=== PATIENT | female | born 1955 | race African-American/Black ===

== ENCOUNTER 2017-01-18 18:20 | Emergency (ER) | payer MEDICAID, OTHER ==
[~2017-01-18] VITALS: Ht 157.5 cm; Wt 71.0 kg
[~2017-01-18 18:20] MED LIST: ALBU17AE26; BECL8.7A5; BENA20TA77; GUAI600T PO; HYDR1TAB4 PO; LEVO125T PO; LEVO75TA; SIMV40TA5; THEO200T37; TIOT18CA3 IH
[2017-01-18 19:05] VITALS: BP 169/87
== END 2017-01-19 00:34 | disposition left against medical advice (07) ==
LOC: ER 01-19 00:09
DX: J45.909 Unspecified asthma, uncomplicated (principal); Z53.21 Procedure and treatment not carried out due to patient leaving prior to being seen by health care provider

== ENCOUNTER 2017-10-09 20:32 | Emergency (ER) | payer MEDICAID ==
[~2017-10-09] VITALS: Ht 162.6 cm; Wt 90.0 kg
[~2017-10-09 20:32] MED LIST changes: -GUAI600T PO; +GUAI600T26 PO; +THEO200T17; -THEO200T37
[2017-10-09] MEDS ORDERED: METHYLPREDNISOLONE SOD SUCC 125 MG/2 ML VIAL IV STA (21:00)
[2017-10-09] MEDS ORDERED: ALBUTEROL (0.083%) 2.5MG/3ML NEB HHN STA (21:00)
[2017-10-09] MEDS ORDERED: IPRATROPIUM BROMIDE (0.02%) 0.5MG/2.5ML NEB HHN STA (21:00)
[2017-10-09 22:06] LABS: BASOPHILS % 1.2 % (0.0-2.0); HEMATOCRIT. 41.8 % (36.0-48.0); HEMOGLOBIN. 13.8 g/dL (12.0-16.0); LYMPHOCYTES % 34.8 % (20.0-50.0); MEAN CORPUSCULAR HEMOGLOBIN 30.6 pg (28.0-32.0); MEAN CORPUSCULAR VOLUME 92.9 fL (81.0-99.0); MEAN PLATELET VOLUME 8.9 fl (7.4-10.4); MONOCYTES % 8.9 % (2.0-8.0); NEUTROPHILS % 51.1 % (40.0-76.0); PLATELET 351 x1000/uL (130-400); RED CELL DISTRIBUTION WIDTH 13.1 % (11.6-14.6)
[2017-10-09 22:09] LABS: PROTHROMBIN TIME 10.5 sec (9.4-11.6)
[2017-10-09 22:12] LABS: CARBON DIOXIDE 26 mEq/L (21-32); CHLORIDE 102 mEq/L (98-107)
[2017-10-09 22:19] LABS: TROPONIN I < 0.02 ng/mL (0.00-0.04)
[2017-10-10] MEDS ORDERED: ALBUTEROL (0.083%) 2.5MG/3ML NEB HHN ONE (00:15)
[2017-10-10 01:12] VITALS: BP 147/75
== END 2017-10-10 01:12 | disposition home or self-care (01) ==
LOC: ER 20:41
DX: J44.1 Chronic obstructive pulmonary disease with (acute) exacerbation (principal); I10 Essential (primary) hypertension
CPT/HCPCS: 36415; 71045; 80053; 83880; 84484; 85025; 85610; 93005; 94640; 96374; 99285; J2930; J7611; Z7610

== ENCOUNTER 2018-10-03 00:17 | Emergency (ER) | payer MEDICAID ==
[~2018-10-03] VITALS: Ht 165.1 cm; Wt 77.2 kg
[~2018-10-03 00:17] MED LIST changes: -LEVO125T PO
[2018-10-03] MEDS ORDERED: IPRATROPIUM BROMIDE (0.02%) 0.5MG/2.5ML NEB HHN STA (00:27)
[2018-10-03] MEDS ORDERED: METHYLPREDNISOLONE SOD SUCC 125 MG/2 ML VIAL IV STA (00:27)
[2018-10-03] MEDS ORDERED: ALBUTEROL (0.083%) 2.5MG/3ML NEB HHN STA (00:27)
[2018-10-03] MEDS ORDERED: MAGNESIUM 2 G PREMIX 50 ML IV STA (00:27)
[2018-10-03] MEDS ORDERED: ASPIRIN 81MG TABLET PO ONE (00:30)
[2018-10-03 00:59] LABS: BG BASE EXCESS 1.9 mmol/L (-2.0-2.0); BG CARBOXYHEMOGLOBIN 0.8 % (0.5-1.5); BG DEOXYHEMOGLOBIN 14.3 % (0.0-5.0); BG FRACTION INSPIRED OXYGEN 100; BG HCO3 ACT 28.4 mmol/L (22.0-26.0); BG METHEMOGLOBIN 0.5 % (0.0-1.5); BG OXYGEN SATURATION 85.5 % (92.0-98.5); BG OXYHEMOGLOBIN 84.4 % (94.0-97.0); BG PCO2 51.7 mmHg (35.0-45.0); BG PH 7.357 (7.350-7.450); BG PO2 52.4 mmHg (75.0-100.0); BG SAMPLE SITE LEFT RADIAL; BG TOTAL HEMOGLOBIN 14.1 g/dL (12.0-18.0); BG VENT MODE MASK - BIPAP
[2018-10-03 01:28] LABS: EOSINOPHILS % 4.5 % (0.0-5.0); HEMATOCRIT. 45.9 % (36.0-48.0); LYMPHOCYTES % 47.3 % (20.0-50.0); MEAN CORPUSCULAR HEMOGLOBIN 29.5 pg (28.0-32.0); MEAN PLATELET VOLUME 9.7 fl (7.4-10.4); MONOCYTES % 8.5 % (2.0-8.0); NEUTROPHILS % 38.7 % (40.0-76.0); PLATELET 280 x1000/uL (130-400); RED CELL DISTRIBUTION WIDTH 13.8 % (11.6-14.6)
[2018-10-03 01:39] LABS: PARTIAL THROMBOPLASTIN TIME 28.2 sec (23.4-31.0)
[2018-10-03 01:46] LABS: CHLORIDE 104 mEq/L (98-107)
[2018-10-03] MEDS ORDERED: KCL 10MEQ/50ML PREMIX 50 ML IV ONE (03:15)
[2018-10-03 03:33] LABS: BG BASE EXCESS 0.5 mmol/L (-2.0-2.0); BG BILEVEL POS AIRWAY PRESSURE 15/5; BG CARBOXYHEMOGLOBIN 0.4 % (0.5-1.5); BG DEOXYHEMOGLOBIN 0.2 % (0.0-5.0); BG FRACTION INSPIRED OXYGEN 100; BG HCO3 ACT 25.6 mmol/L (22.0-26.0); BG METHEMOGLOBIN 0.6 % (0.0-1.5); BG OXYGEN SATURATION 99.8 % (92.0-98.5); BG OXYHEMOGLOBIN 98.8 % (94.0-97.0); BG PCO2 42.9 mmHg (35.0-45.0); BG PH 7.393 (7.350-7.450); BG PO2 467.3 mmHg (75.0-100.0); BG SAMPLE SITE RIGHT RADIAL; BG TOTAL HEMOGLOBIN 13.6 g/dL (12.0-18.0); BG VENT MODE MASK - BIPAP; BG VENT RATE 14 set
[2018-10-03] MEDS ORDERED: LEVOFLOXACIN 500MG PREMIX 100 ML IV SCH (06:45)
[2018-10-03] MEDS ORDERED: ENOXAPARIN 40MG/0.4ML SYR SUBCUT SCH (06:45)
[2018-10-03] MEDS ORDERED: ONDANSETRON HCL 4MG/2ML INJ IV PRN (06:45)
[2018-10-03] MEDS ORDERED: CLONIDINE 0.1MG TABLET PO PRN (06:45)
[2018-10-03] MEDS ORDERED: DIPHENHYDRAMINE 50MG/ML VIAL IV PRN (06:45)
[2018-10-03] MEDS ORDERED: NA PHOS,M-B/NA PHOS,DI-BA ENEMA 118ML PR PRN (06:45)
[2018-10-03] MEDS ORDERED: MORPHINE SULFATE 4 MG/ML CPJ (NOT FOR IM USE) IV PRN (06:45)
[2018-10-03] MEDS ORDERED: GUAIFENESIN 200MG/10ML SUGAR FREE UDC PO PRN (06:45)
[2018-10-03] MEDS ORDERED: LORAZEPAM 2MG/ML CPJ IV PRN (06:45)
[2018-10-03] MEDS ORDERED: MAGNESIUM/ALUMINUM HYDROXIDE/SIMETHICONE 30ML UDC PO PRN (06:45)
[2018-10-03] MEDS ORDERED: ACETAMINOPHEN 325MG TABLET PO PRN (06:45)
[2018-10-03] MEDS ORDERED: IPRATROPIUM/ALBUTEROL 0.5-3(2.5)MG/3ML NEB INH PRN (06:45)
[2018-10-03] MEDS ORDERED: DOCUSATE SODIUM 100MG CAPSULE PO PRN (06:45)
[2018-10-03] MEDS ORDERED: HYDROCODONE/ACETAMINOPHEN 5/325MG TABLET PO PRN (06:45)
[2018-10-03] MEDS ORDERED: METHYLPREDNISOLONE SOD SUCC 125 MG/2 ML VIAL IV SCH (07:00)
[2018-10-03 07:35] VITALS: BP 150/71
[2018-10-03] MEDS ORDERED: ASPIRIN 81MG EC TABLET PO SCH (09:00)
== END 2018-10-03 08:00 | disposition left against medical advice (07) ==
LOC: ER 00:17 → EDBEDREQ 03:19 → EDBEDREQTM 03:19 → ENRESERV 07:56 → CANRESERV 07:56 → ER 08:00 → CANBEDREQ 10:44
DX: J44.9 Chronic obstructive pulmonary disease, unspecified (principal); E87.6 Hypokalemia; I10 Essential (primary) hypertension; E05.90 Thyrotoxicosis, unspecified without thyrotoxic crisis or storm; Z79.899 Other long term (current) drug therapy
CPT/HCPCS: 36415; 36600; 71045; 80053; 82375; 82805; 83880; 84484; 85025; 85610; 85730; 93005; 94644; 94660; 99285; J2930; J3475; J3480; J7611; Z7610; 94640

== ENCOUNTER 2018-12-12 08:55 | Inpatient (IN) | payer MEDICAID ==
[~2018-12-12] VITALS: Ht 160 cm; Wt 82.3 kg
[2018-12-12] VITALS (8 sets, daily range): BP systolic 130–169; BP diastolic 54–112
[2018-12-12] MEDS ORDERED: METHYLPREDNISOLONE SOD SUCC 125 MG/2 ML VIAL IV STA (09:03)
[2018-12-12] MEDS ORDERED: ALBUTEROL (0.083%) 2.5MG/3ML NEB HHN STA (09:03)
[2018-12-12] MEDS ORDERED: IPRATROPIUM BROMIDE (0.02%) 0.5MG/2.5ML NEB HHN STA (09:03)
[2018-12-12] MEDS ORDERED: SODIUM CHLORIDE 0.9% 1,000 ML IV ONE (09:03)
[2018-12-12] MEDS ORDERED: MAGNESIUM 2 G PREMIX 50 ML IV ONE (09:15)
[2018-12-12 09:26] LABS: EOSINOPHILS % 5.4 % (0.0-5.0); HEMATOCRIT. 45.7 % (36.0-48.0); HEMOGLOBIN. 14.9 g/dL (12.0-16.0); LYMPHOCYTES % 41.7 % (20.0-50.0); MEAN CORPUSCULAR HEMOGLOBIN 29.2 pg (28.0-32.0); MEAN CORPUSCULAR VOLUME 89.6 fL (81.0-99.0); MEAN PLATELET VOLUME 8.9 fl (7.4-10.4); MONOCYTES % 4.9 % (2.0-8.0); PLATELET 276 x1000/uL (130-400); RED BLOOD CELL COUNT 5.11 mill/uL (4.2-5.4); RED CELL DISTRIBUTION WIDTH 13.7 % (11.6-14.6)
[2018-12-12 09:31] LABS: CHLORIDE 105 mEq/L (98-107)
[2018-12-12 10:48] LABS: BG BILEVEL POS AIRWAY PRESSURE 15/5; BG CARBOXYHEMOGLOBIN 0.5 % (0.5-1.5); BG DEOXYHEMOGLOBIN 0.3 % (0.0-5.0); BG HCO3 ACT 24.9 mmol/L (22.0-26.0); BG METHEMOGLOBIN 0.5 % (0.0-1.5); BG OXYGEN SATURATION 99.7 % (92.0-98.5); BG OXYHEMOGLOBIN 98.7 % (94.0-97.0); BG PCO2 45.7 mmHg (35.0-45.0); BG PH 7.354 (7.350-7.450); BG PO2 364.1 mmHg (75.0-100.0); BG SAMPLE SITE RIGHT RADIAL; BG TOTAL HEMOGLOBIN 14.9 g/dL (12.0-18.0); BG VENT MODE MASK - BIPAP; BG VENT RATE 16 set
[2018-12-12] MEDS ORDERED: IPRATROPIUM/ALBUTEROL 0.5-3(2.5)MG/3ML NEB ONE (16:04)
[2018-12-12] MEDS ORDERED: LORAZEPAM 0.5MG TABLET PO PRN (17:30)
[2018-12-12] MEDS ORDERED: ACETAMINOPHEN 325MG TABLET PO PRN (17:30)
[2018-12-12] MEDS ORDERED: ONDANSETRON HCL 4MG/2ML INJ IV PRN (17:30)
[2018-12-12] MEDS ORDERED: CLONIDINE 0.1MG TABLET PO PRN (17:30)
[2018-12-12] MEDS ORDERED: IPRATROPIUM/ALBUTEROL 0.5-3(2.5)MG/3ML NEB INH PRN (17:30)
[2018-12-12] MEDS ORDERED: POTASSIUM CHLORIDE 20MEQ TABLET SR PO SCH (17:30)
[2018-12-12] MEDS ORDERED: METHYLPREDNISOLONE SOD SUCC 40 MG/ML VIAL IV SCH (17:30)
[2018-12-12] MEDS ORDERED: AZITHROMYCIN 500 MG in DEXT 5% WATER 250 ML IV SCH (18:30)
[2018-12-12] MEDS ORDERED: ALBUTEROL (0.5%) 2.5MG/0.5ML NEB HHN PRN (20:15)
[2018-12-12] MEDS ORDERED: THEOPHYLLINE ANHYDROUS 100MG TABLET SR 12HR PO SCH (21:00)
[2018-12-12] MEDS ORDERED: DEXTROSE 50% WATER 50ML SYRINGE IV PRN (21:00)
[2018-12-12] MEDS: BLOOD SUGAR DIAGNOSTIC STRIP TEST SCH (21:25)
[2018-12-12] MEDS: INSULIN LISPRO 100 UNITS/ML SUBCUT SCH (21:43)
[2018-12-12] MEDS: HYDROCODONE/ACETAMINOPHEN 5/325MG TABLET PO PRN (21:47)
[2018-12-12] MEDS ORDERED: ZOLPIDEM TARTRATE 5MG TABLET PO PRN (22:00)
[2018-12-12] MEDS: THEOPHYLLINE ANHYDROUS 80 MG/15 ML 120ML PO SCH (22:58)
[2018-12-13] VITALS (8 sets, daily range): BP systolic 93–151; BP diastolic 38–78
[2018-12-13] MEDS: METHYLPREDNISOLONE SOD SUCC 40 MG/ML VIAL IV SCH ×3 (00:22→11:55)
[2018-12-13] MEDS: ALBUTEROL (0.083%) 2.5MG/3ML NEB HHN SCH ×4 (00:35→13:20)
[2018-12-13] MEDS: THEOPHYLLINE ANHYDROUS 80 MG/15 ML 120ML PO SCH (06:17)
[2018-12-13] MEDS: BLOOD SUGAR DIAGNOSTIC STRIP TEST SCH ×2 (06:22→11:49)
[2018-12-13 06:57] LABS: BASOPHILS % 0.3 % (0.0-2.0); HEMATOCRIT. 41.3 % (36.0-48.0); HEMOGLOBIN. 13.8 g/dL (12.0-16.0); LYMPHOCYTES % 9.7 % (20.0-50.0); MEAN CORPUSCULAR HEMOGLOBIN 29.9 pg (28.0-32.0); MEAN CORPUSCULAR VOLUME 89.2 fL (81.0-99.0); MEAN PLATELET VOLUME 9.2 fl (7.4-10.4); MONOCYTES % 2.2 % (2.0-8.0); NEUTROPHILS % 87.8 % (40.0-76.0); PLATELET 272 x1000/uL (130-400); RED BLOOD CELL COUNT 4.63 mill/uL (4.2-5.4); RED CELL DISTRIBUTION WIDTH 13.4 % (11.6-14.6)
[2018-12-13] MEDS: INSULIN LISPRO 100 UNITS/ML SUBCUT SCH ×2 (07:08→11:49)
[2018-12-13 07:27] LABS: CHLORIDE 105 mEq/L (98-107)
[2018-12-13 07:39] LABS: PHOSPHORUS 3.3 mg/dL (2.5-4.9)
[2018-12-13 09:18] LABS: BG BASE EXCESS -0.6 mmol/L (-2.0-2.0); BG CARBOXYHEMOGLOBIN 0.7 % (0.5-1.5); BG FRACTION INSPIRED OXYGEN 28; BG HCO3 ACT 23.2 mmol/L (22.0-26.0); BG METHEMOGLOBIN 0.3 % (0.0-1.5); BG PCO2 35.9 mmHg (35.0-45.0); BG PH 7.429 (7.350-7.450); BG PO2 88.1 mmHg (75.0-100.0); BG SAMPLE SITE RIGHT RADIAL; BG TOTAL HEMOGLOBIN 14.7 g/dL (12.0-18.0); BG VENT MODE NASAL CANNULA
[2018-12-13] MEDS: HYDROCODONE/ACETAMINOPHEN 5/325MG TABLET PO PRN (09:39)
[2018-12-13] MEDS ORDERED: BUDESONIDE 0.5MG/2ML NEB HHN SCH (13:00)
[2018-12-13] MEDS ORDERED: LIDOCAINE HCL/PF 1% 2ML VIAL ONE (16:36)
[2018-12-14] MEDS ORDERED: PREDNISONE 20MG TABLET PO SCH (09:00)
== END 2018-12-13 14:13 | disposition home or self-care (01) | DRG 133 ==
LOC: ER 09:03 → 3WST 12:54 → EDBEDREQ 12:56 → EDBEDREQSVC 12:56 → ENRESERV 15:07 → 3WST 16:32
PROVIDERS: ADMIT Internal Medicine; ATTEND Internal Medicine
PROC: 5A09357 Assistance with Respiratory Ventilation, Less than 24 Consecutive Hours, Continuous Positive Airway Pressure (ICD-10-PCS; principal; 2018-12-12)
DX: J96.00 Acute respiratory failure, unspecified whether with hypoxia or hypercapnia (principal); J45.41 Moderate persistent asthma with (acute) exacerbation; D72.829 Elevated white blood cell count, unspecified; E87.6 Hypokalemia; M16.11 Unilateral primary osteoarthritis, right hip; R73.9 Hyperglycemia, unspecified; I10 Essential (primary) hypertension; G89.29 Other chronic pain; E78.5 Hyperlipidemia, unspecified; E03.9 Hypothyroidism, unspecified; T38.0X5A Adverse effect of glucocorticoids and synthetic analogues, initial encounter; Y92.89 Other specified places as the place of occurrence of the external cause; Z96.653 Presence of artificial knee joint, bilateral; Z87.01 Personal history of pneumonia (recurrent); Z79.899 Other long term (current) drug therapy; J45.901 Unspecified asthma with (acute) exacerbation
CPT/HCPCS: 36415; 36600; 71045; 80048; 82375; 82805; 82962; 83036; 83735; 83880; 84100; 84484; 85379; 87804; 93005; 94640; 94660; 96374; 96375; 99285; J0456; J1815; J2920; J2930; J3475; J3490; J7030; J7050; J7060; J7611; J7620; J7626

== ENCOUNTER 2019-01-01 20:42 | Emergency (ER) | payer MEDICAID ==
[~2019-01-01] VITALS: Ht 157.5 cm; Wt 77.0 kg
[2019-01-01] MEDS ORDERED: IPRATROPIUM BROMIDE (0.02%) 0.5MG/2.5ML NEB HHN STA (23:16)
[2019-01-01] MEDS ORDERED: ALBUTEROL (0.083%) 2.5MG/3ML NEB HHN STA (23:16)
[2019-01-01] MEDS ORDERED: PREDNISONE 20MG TABLET PO STA (23:16)
[2019-01-02 00:25] LABS: EOSINOPHILS % 4.7 % (0.0-5.0); HEMATOCRIT. 37.8 % (36.0-48.0); HEMOGLOBIN. 12.6 g/dL (12.0-16.0); LYMPHOCYTES % 38.5 % (20.0-50.0); MEAN CORPUSCULAR HEMOGLOBIN 30.1 pg (28.0-32.0); MEAN CORPUSCULAR VOLUME 89.9 fL (81.0-99.0); MEAN PLATELET VOLUME 9.1 fl (7.4-10.4); MONOCYTES % 6.8 % (2.0-8.0); PLATELET 192 x1000/uL (130-400); RED CELL DISTRIBUTION WIDTH 13.8 % (11.6-14.6)
[2019-01-02 00:27] LABS: CHLORIDE 106 mEq/L (98-107)
[2019-01-02] MEDS ORDERED: ALBUTEROL (0.083%) 2.5MG/3ML NEB HHN ONE (01:15)
[2019-01-02] MEDS ORDERED: ACETAMINOPHEN 325MG TABLET PO PRN (01:15)
[2019-01-02] MEDS ORDERED: LEVOFLOXACIN 750MG PREMIX 150 ML IV ONE (01:45)
[2019-01-02] MEDS ORDERED: ASPIRIN 81MG TABLET PO ONE (02:00)
[2019-01-02] MEDS ORDERED: POTASSIUM CHLORIDE 20MEQ TABLET SR PO ONE (02:00)
[2019-01-02 02:52] LABS: CLARITY URINE CLEAR (CLEAR); COLOR URINE YELLOW (YELLOW); KETONES URINE NEGATIVE (NEGATIVE); LEUKOCYTE ESTERASE URINE NEGATIVE (NEGATIVE); NITRITE URINE NEGATIVE (NEGATIVE); OCCULT BLOOD URINE NEGATIVE (NEGATIVE); PROTEIN URINE NEGATIVE (NEGATIVE)
[2019-01-02 05:02] VITALS: BP 168/75
== END 2019-01-02 05:06 | disposition left against medical advice (07) ==
LOC: ER 20:55 → EDBEDREQ 01-02 01:17 → EDBEDREQTM 01-02 01:17 → ENRESERV 01-02 02:32 → CANRESERV 01-02 02:32 → ER 01-02 05:06 → CANBEDREQ 01-02 06:26
DX: J45.901 Unspecified asthma with (acute) exacerbation (principal); R94.31 Abnormal electrocardiogram [ECG] [EKG]; I10 Essential (primary) hypertension; E05.90 Thyrotoxicosis, unspecified without thyrotoxic crisis or storm; Z79.899 Other long term (current) drug therapy
CPT/HCPCS: 36415; 71045; 80053; 81003; 83880; 84484; 85025; 87040; 87086; 93005; 94640; 96365; 99284; J1956; J7512; J7611

== ENCOUNTER 2019-04-01 05:49 | Emergency (ER) | payer MEDICAID ==
[~2019-04-01] VITALS: Ht 167.6 cm; Wt 91.0 kg
[2019-04-01] MEDS ORDERED: KETOROLAC 60MG/2ML VIAL IM ONE (06:45)
[2019-04-01 08:15] VITALS: BP 137/72
== END 2019-04-01 08:20 | disposition home or self-care (01) ==
LOC: ER 05:49
DX: M54.5 Low back pain (principal); J45.909 Unspecified asthma, uncomplicated; I10 Essential (primary) hypertension; Z79.899 Other long term (current) drug therapy
CPT/HCPCS: 72131; 96372; 99284; J1885

== ENCOUNTER 2019-04-19 03:05 | Inpatient (IN) | payer MEDICAID ==
[2019-04-19] VITALS (8 sets, daily range): BP systolic 92–160; BP diastolic 48–79
[~2019-04-19] VITALS: Ht 162.6 cm; Wt 79.2 kg
[2019-04-19] MEDS ORDERED: METHYLPREDNISOLONE SOD SUCC 125 MG/2 ML VIAL IV STA (03:32)
[2019-04-19] MEDS ORDERED: SODIUM CHLORIDE 0.9% 1,000 ML IV ONE (03:32)
[2019-04-19] MEDS ORDERED: IPRATROPIUM BROMIDE (0.02%) 0.5MG/2.5ML NEB HHN STA (03:32)
[2019-04-19] MEDS ORDERED: ONDANSETRON HCL 4MG/2ML INJ IV STA (03:32)
[2019-04-19] MEDS ORDERED: MAGNESIUM 2 G PREMIX 50 ML IV ONE (03:45)
[2019-04-19] MEDS: ALBUTEROL (0.083%) 2.5MG/3ML NEB HHN SCH ×3 (04:00→05:00)
[2019-04-19 04:16] LABS: BASOPHILS % 1.1 % (0.0-2.0); EOSINOPHILS % 6.4 % (0.0-5.0); MEAN CORPUSCULAR HEMOGLOBIN 30.5 pg (28.0-32.0); MEAN CORPUSCULAR VOLUME 91.3 fL (81.0-99.0); MEAN PLATELET VOLUME 9.1 fl (7.4-10.4); MONOCYTES % 8.8 % (2.0-8.0); NEUTROPHILS % 39.7 % (40.0-76.0); PLATELET 268 x1000/uL (130-400); RED BLOOD CELL COUNT 4.27 mill/uL (4.2-5.4); RED CELL DISTRIBUTION WIDTH 13.1 % (11.6-14.6)
[2019-04-19 04:18] LABS: CHLORIDE 109 mEq/L (98-107)
[2019-04-19] MEDS ORDERED: NA PHOS,M-B/NA PHOS,DI-BA ENEMA 118ML PR PRN (07:00)
[2019-04-19] MEDS ORDERED: DIPHENHYDRAMINE 50MG/ML VIAL IV PRN (07:00)
[2019-04-19] MEDS ORDERED: ACETAMINOPHEN 325MG TABLET PO PRN (07:00)
[2019-04-19] MEDS ORDERED: MORPHINE SULFATE 2 MG/ML CPJ (NOT FOR IM USE) IV PRN (07:00)
[2019-04-19] MEDS ORDERED: ONDANSETRON HCL 4MG/2ML INJ IV PRN (07:00)
[2019-04-19] MEDS ORDERED: POTASSIUM CHLORIDE 20MEQ TABLET SR PO SCH (07:00)
[2019-04-19] MEDS ORDERED: IPRATROPIUM/ALBUTEROL 0.5-3(2.5)MG/3ML NEB INH PRN (07:00)
[2019-04-19] MEDS ORDERED: CLONIDINE 0.1MG TABLET PO PRN (07:00)
[2019-04-19] MEDS ORDERED: GUAIFENESIN 200MG/10ML SUGAR FREE UDC PO PRN (07:00)
[2019-04-19] MEDS ORDERED: MAGNESIUM/ALUMINUM HYDROXIDE/SIMETHICONE 30ML UDC PO PRN (07:00)
[2019-04-19] MEDS ORDERED: HYDRALAZINE 20MG/ML VIAL IV PRN (07:00)
[2019-04-19] MEDS ORDERED: LORAZEPAM 2MG/ML CPJ IV PRN (07:00)
[2019-04-19] MEDS ORDERED: DOCUSATE SODIUM 100MG CAPSULE PO PRN (07:00)
[2019-04-19 07:52] LABS: BG BASE EXCESS -2.1 mmol/L (-2.0-2.0); BG BILEVEL POS AIRWAY PRESSURE 18/5; BG CARBOXYHEMOGLOBIN 0.3 % (0.5-1.5); BG DEOXYHEMOGLOBIN 0.9 % (0.0-5.0); BG FRACTION INSPIRED OXYGEN 40; BG HCO3 ACT 23.4 mmol/L (22.0-26.0); BG METHEMOGLOBIN 0.2 % (0.0-1.5); BG OXYGEN SATURATION 99.1 % (92.0-98.5); BG OXYHEMOGLOBIN 98.6 % (94.0-97.0); BG PCO2 42.8 mmHg (35.0-45.0); BG PH 7.355 (7.350-7.450); BG PO2 181.1 mmHg (75.0-100.0); BG SAMPLE SITE RIGHT RADIAL; BG TOTAL HEMOGLOBIN 12.5 g/dL (12.0-18.0); BG VENT MODE MASK - BIPAP; BG VENT RATE 14 set
[2019-04-19] MEDS: ENOXAPARIN 40MG/0.4ML SYR SUBCUT SCH (09:58)
[2019-04-19] MEDS ORDERED: ASPIRIN 81MG EC TABLET PO SCH (10:00)
[2019-04-19] MEDS: HYDROCODONE/ACETAMINOPHEN 10/325MG TABLET PO PRN (10:31)
[2019-04-19 12:52] LABS: T4 FREE 0.96 ng/dL (0.76-1.46)
[2019-04-19] MEDS: SODIUM CHLORIDE 0.9% INJ 3ML FLUSH IVF SCH ×2 (14:00→21:42)
[2019-04-19] MEDS ORDERED: IPRATROPIUM/ALBUTEROL 0.5-3(2.5)MG/3ML NEB HHN PRN (14:45)
[2019-04-19 16:15] LABS: CREATINE KINASE 93 IU/L (26-192)
[2019-04-19 16:16] LABS: CREATINE KINASE MB FRACTION 4.3 ng/mL (0.5-3.6)
[2019-04-19 16:51] LABS: CLARITY URINE CLEAR (CLEAR); COLOR URINE YELLOW (YELLOW); KETONES URINE TRACE (NEGATIVE); LEUKOCYTE ESTERASE URINE NEGATIVE (NEGATIVE); NITRITE URINE NEGATIVE (NEGATIVE); OCCULT BLOOD URINE NEGATIVE (NEGATIVE); PROTEIN URINE NEGATIVE (NEGATIVE); SPECIFIC GRAVITY URINE 1.025 (1.005-1.030)
[2019-04-19] MEDS ORDERED: MONTELUKAST SODIUM 10MG TABLET PO SCH (17:00)
[2019-04-19] MEDS: MECLIZINE 25MG TABLET PO PRN (18:09)
[2019-04-19] MEDS: PREDNISONE 20MG TABLET PO SCH (18:09)
[2019-04-19 18:40] LABS: T4 FREE 1.04 ng/dL (0.76-1.46)
[2019-04-19] MEDS: IPRATROPIUM/ALBUTEROL 0.5-3(2.5)MG/3ML NEB HHN SCH (20:33)
[2019-04-19] MEDS: FLUTICASONE PROPIONATE 50MCG/SPRAY BOTTLE BOTHNSTRLS SCH (21:37)
[2019-04-20] VITALS (8 sets, daily range): BP systolic 127–177; BP diastolic 48–81
[2019-04-20] MEDS: IPRATROPIUM/ALBUTEROL 0.5-3(2.5)MG/3ML NEB HHN SCH ×3 (01:28→14:10)
[2019-04-20] MEDS: MECLIZINE 25MG TABLET PO PRN (01:34)
[2019-04-20] MEDS: HYDROCODONE/ACETAMINOPHEN 10/325MG TABLET PO PRN (02:47)
[2019-04-20] MEDS: SODIUM CHLORIDE 0.9% INJ 3ML FLUSH IVF SCH (06:30)
[2019-04-20 07:25] LABS: BASOPHILS % 0.3 % (0.0-2.0); HEMOGLOBIN. 12.2 g/dL (12.0-16.0); LYMPHOCYTES % 9.3 % (20.0-50.0); MEAN CORPUSCULAR HEMOGLOBIN 30.4 pg (28.0-32.0); MEAN PLATELET VOLUME 9.7 fl (7.4-10.4); MONOCYTES % 6.3 % (2.0-8.0); NEUTROPHILS % 84.1 % (40.0-76.0); PLATELET 237 x1000/uL (130-400); RED BLOOD CELL COUNT 4.02 mill/uL (4.2-5.4); RED CELL DISTRIBUTION WIDTH 13.2 % (11.6-14.6)
[2019-04-20 07:39] LABS: CHLORIDE 110 mEq/L (98-107)
[2019-04-20 07:58] LABS: CREATINE KINASE 67 IU/L (26-192); HDL CHOLESTEROL 81 mg/dL (40-59); LDL CHOLESTEROL 116 mg/dL (5-100)
[2019-04-20 08:00] LABS: CREATINE KINASE MB FRACTION 3.1 ng/mL (0.5-3.6)
[2019-04-20] MEDS ORDERED: ASPIRIN 81MG TABLET PO SCH (09:00)
[2019-04-20] MEDS: ENOXAPARIN 40MG/0.4ML SYR SUBCUT SCH (09:13)
[2019-04-20] MEDS: PREDNISONE 20MG TABLET PO SCH (09:14)
[2019-04-20] MEDS: FLUTICASONE PROPIONATE 50MCG/SPRAY BOTTLE BOTHNSTRLS SCH (09:15)
[2019-04-20 16:59] LABS: *AMPHETAMINES SCREEN URINE NEGATIVE (NEGATIVE)
[2019-04-20 17:00] LABS: *BARBITURATES SCREEN URINE NEGATIVE (NEGATIVE); *BENZODIAZEPINES SCREEN URINE NEGATIVE (NEGATIVE); *COCAINE SCREEN URINE NEGATIVE (NEGATIVE); METHADONE URINE SCREEN NEGATIVE (NEGATIVE); OPIATES URINE SCREEN PRESUMTIVE POSITIVE (NEGATIVE); PHENCYCLIDINE URINE SCREEN NEGATIVE (NEGATIVE)
[2019-04-20 17:01] LABS: CANNABINOID URINE SCREEN NEGATIVE (NEGATIVE)
== END 2019-04-20 14:45 | disposition home or self-care (01) | DRG 133 ==
LOC: ER 03:05 → 5EST 05:42 → EDBEDREQ 05:52 → EDBEDREQTM 05:52 → EDBEDREQSVC 05:52 → ENRESERV 07:06
PROVIDERS: ADMIT Internal Medicine; ATTEND Internal Medicine
PROC: 5A09357 Assistance with Respiratory Ventilation, Less than 24 Consecutive Hours, Continuous Positive Airway Pressure (ICD-10-PCS; principal; 2019-04-19)
DX: J96.00 Acute respiratory failure, unspecified whether with hypoxia or hypercapnia (principal); E87.2 Acidosis; E05.90 Thyrotoxicosis, unspecified without thyrotoxic crisis or storm; I50.9 Heart failure, unspecified; I11.0 Hypertensive heart disease with heart failure; J45.901 Unspecified asthma with (acute) exacerbation; E03.9 Hypothyroidism, unspecified; E78.5 Hyperlipidemia, unspecified; E87.6 Hypokalemia; F17.210 Nicotine dependence, cigarettes, uncomplicated; M19.90 Unspecified osteoarthritis, unspecified site; Z96.659 Presence of unspecified artificial knee joint; Z60.2 Problems related to living alone; J30.9 Allergic rhinitis, unspecified; Z79.899 Other long term (current) drug therapy
CPT/HCPCS: 36415; 36600; 71045; 80061; 80305; 81003; 82375; 82550; 82553; 82805; 83036; 83605; 83880; 84439; 84443; 84481; 84484; 85379; 93005; 93306; 94640; 94660; 96374; 99285; J1650; J2060; J2270; J2405; J2930; J3475; J7030; J7512; J7611; J7620; J8597

== ENCOUNTER 2019-08-30 19:01 | Emergency (ER) | payer MEDICARE, MEDICAID ==
[~2019-08-30] VITALS: Ht 157.5 cm; Wt 82.0 kg
[2019-08-30 19:14] VITALS: BP 185/82
[2019-09-05] MEDS ORDERED: P20 PO (13:53)
[2019-09-05] MEDS ORDERED: AZIT500T3 MT (13:53)
== END 2019-08-31 | disposition left against medical advice (07) ==
LOC: ER 19:01
DX: Z53.21 Procedure and treatment not carried out due to patient leaving prior to being seen by health care provider (principal)

== ENCOUNTER 2019-09-03 06:39 | Inpatient (IN) | payer MEDICARE, MEDICAID ==
[~2019-09-03] VITALS: Ht 167.6 cm; Wt 84.8 kg
[2019-09-03] VITALS (17 sets, daily range): BP systolic 107–151; BP diastolic 48–110
[2019-09-03] MEDS ORDERED: ALBUTEROL (0.083%) 2.5MG/3ML NEB HHN STA (06:52)
[2019-09-03] MEDS ORDERED: IPRATROPIUM BROMIDE (0.02%) 0.5MG/2.5ML NEB HHN STA (06:52)
[2019-09-03] MEDS ORDERED: METHYLPREDNISOLONE SOD SUCC 125 MG/2 ML VIAL IV STA (06:52)
[2019-09-03] MEDS ORDERED: MAGNESIUM 2 G PREMIX 50 ML IV STA (06:52)
[2019-09-03] MEDS ORDERED: ALBUTEROL (0.083%) 2.5MG/3ML NEB ONE (06:58)
[2019-09-03] MEDS ORDERED: IPRATROPIUM BROMIDE (0.02%) 0.5MG/2.5ML NEB ONE (06:58)
[2019-09-03 07:15] LABS: BASOPHILS % 0.9 % (0.0-2.0); EOSINOPHILS % 4.3 % (0.0-5.0); HEMATOCRIT. 42.5 % (36.0-48.0); HEMOGLOBIN. 14.3 g/dL (12.0-16.0); LYMPHOCYTES % 39.8 % (20.0-50.0); MEAN CORPUSCULAR HEMOGLOBIN 31.1 pg (28.0-32.0); MEAN CORPUSCULAR VOLUME 92.3 fL (81.0-99.0); MEAN PLATELET VOLUME 8.8 fl (7.4-10.4); MONOCYTES % 12.3 % (2.0-8.0); NEUTROPHILS % 42.7 % (40.0-76.0); PLATELET 250 x1000/uL (130-400); RED BLOOD CELL COUNT 4.61 mill/uL (4.2-5.4); RED CELL DISTRIBUTION WIDTH 13.1 % (11.6-14.6)
[2019-09-03 07:22] LABS: CHLORIDE 105 mEq/L (98-107)
[2019-09-03 07:23] LABS: INR 0.9; PROTHROMBIN TIME 9.4 sec (9.6-11.0)
[2019-09-03] MEDS ORDERED: LEVOFLOXACIN 500MG PREMIX 100 ML IV ONE (07:30)
[2019-09-03 08:55] LABS: BG BASE EXCESS -4.5 mmol/L (-2.0-2.0); BG BILEVEL POS AIRWAY PRESSURE 15/5; BG CARBOXYHEMOGLOBIN 0.7 % (0.5-1.5); BG METHEMOGLOBIN 0.4 % (0.0-1.5); BG OXYHEMOGLOBIN 97.9 % (94.0-97.0); BG PCO2 35.3 mmHg (35.0-45.0); BG PH 7.371 (7.350-7.450); BG PO2 150.6 mmHg (75.0-100.0); BG SAMPLE SITE RIGHT RADIAL; BG VENT MODE MASK - BIPAP; BG VENT RATE 16 set
[2019-09-03 12:03] LABS: CLARITY URINE CLEAR (CLEAR); COLOR URINE YELLOW (YELLOW); KETONES URINE NEGATIVE (NEGATIVE); LEUKOCYTE ESTERASE URINE TRACE (NEGATIVE); NITRITE URINE NEGATIVE (NEGATIVE); OCCULT BLOOD URINE NEGATIVE (NEGATIVE); PROTEIN URINE NEGATIVE (NEGATIVE); SPECIFIC GRAVITY URINE 1.024 (1.005-1.030); UROBILINOGEN URINE 0.2 E.U./dL (0.2-1.0)
[2019-09-03] MEDS ORDERED: IPRATROPIUM/ALBUTEROL 0.5-3(2.5)MG/3ML NEB HHN PRN (12:15)
[2019-09-03] MEDS ORDERED: TERBUTALINE SULFATE 1MG/ML VIAL SUBCUT NR (12:15)
[2019-09-03] MEDS ORDERED: METHYLPREDNISOLONE SOD SUCC 40 MG/ML VIAL IV SCH (12:15)
[2019-09-03] MEDS ORDERED: BENZONATATE 100MG CAPSULE PO PRN (12:15)
[2019-09-03 12:26] LABS: OPIATES URINE SCREEN PRESUMTIVE POSITIVE (NEGATIVE)
[2019-09-03 12:27] LABS: *AMPHETAMINES SCREEN URINE NEGATIVE (NEGATIVE); *BARBITURATES SCREEN URINE NEGATIVE (NEGATIVE); *BENZODIAZEPINES SCREEN URINE NEGATIVE (NEGATIVE); *COCAINE SCREEN URINE NEGATIVE (NEGATIVE); CANNABINOID URINE SCREEN NEGATIVE (NEGATIVE); PHENCYCLIDINE URINE SCREEN NEGATIVE (NEGATIVE)
[2019-09-03 12:28] LABS: METHADONE URINE SCREEN NEGATIVE (NEGATIVE)
[2019-09-03] MEDS ORDERED: LORAZEPAM 2MG/ML CPJ IV PRN (12:30)
[2019-09-03] MEDS: AZITHROMYCIN 500 MG TABLET PO SCH (13:06)
[2019-09-03] MEDS ORDERED: DOCUSATE SODIUM 100MG CAPSULE PO PRN (13:15)
[2019-09-03] MEDS ORDERED: CLONIDINE 0.1MG TABLET PO PRN (13:15)
[2019-09-03] MEDS ORDERED: GUAIFENESIN 200MG/10ML SUGAR FREE UDC PO PRN (13:15)
[2019-09-03] MEDS ORDERED: MAGNESIUM/ALUMINUM HYDROXIDE/SIMETHICONE 30ML UDC PO PRN (13:15)
[2019-09-03] MEDS ORDERED: IPRATROPIUM/ALBUTEROL 0.5-3(2.5)MG/3ML NEB NEB PRN (13:15)
[2019-09-03] MEDS ORDERED: ONDANSETRON HCL 4MG/2ML INJ IV PRN (13:15)
[2019-09-03] MEDS ORDERED: IPRATROPIUM/ALBUTEROL 0.5-3(2.5)MG/3ML NEB HHN SCH (16:00)
[2019-09-03] MEDS: MONTELUKAST SODIUM 10MG TABLET PO SCH (17:58)
[2019-09-03] MEDS: METHYLPREDNISOLONE SOD SUCC 125 MG/2 ML VIAL IV SCH ×2 (17:58→21:01)
[2019-09-03] MEDS: ENOXAPARIN 40MG/0.4ML SYR SUBCUT SCH (17:58)
[2019-09-03] MEDS: LORATADINE 10MG TABLET PO SCH (17:58)
[2019-09-03] MEDS: ACETAMINOPHEN 325MG TABLET PO PRN (19:34)
[2019-09-03] MEDS: IPRATROPIUM/ALBUTEROL 0.5-3(2.5)MG/3ML NEB NEB SCH (19:56)
[2019-09-03] MEDS: FLUTICASONE PROPIONATE 50MCG/SPRAY BOTTLE BOTHNSTRLS SCH (21:01)
[2019-09-03] MEDS: FAMOTIDINE 20MG/2ML VIAL IV SCH (21:02)
[2019-09-04] VITALS (23 sets, daily range): BP systolic 108–152; BP diastolic 50–86
[2019-09-04] MEDS: IPRATROPIUM/ALBUTEROL 0.5-3(2.5)MG/3ML NEB NEB SCH ×4 (02:00→20:21)
[2019-09-04] MEDS: ACETAMINOPHEN 325MG TABLET PO PRN (03:12)
[2019-09-04] MEDS: METHYLPREDNISOLONE SOD SUCC 125 MG/2 ML VIAL IV SCH ×4 (03:15→21:13)
[2019-09-04 06:49] LABS: HEMATOCRIT. 39.9 % (36.0-48.0); HEMOGLOBIN. 13.1 g/dL (12.0-16.0); MEAN CORPUSCULAR HEMOGLOBIN 30.3 pg (28.0-32.0); MEAN PLATELET VOLUME 9.1 fl (7.4-10.4); PLATELET 225 x1000/uL (130-400); RED BLOOD CELL COUNT 4.34 mill/uL (4.2-5.4); RED CELL DISTRIBUTION WIDTH 13.7 % (11.6-14.6)
[2019-09-04 06:59] LABS: CHLORIDE 106 mEq/L (98-107)
[2019-09-04 07:09] LABS: T4 FREE 1.05 ng/dL (0.76-1.46)
[2019-09-04] MEDS ORDERED: LEVOFLOXACIN 500MG PREMIX 100 ML IV SCH (08:00)
[2019-09-04 09:09] LABS: BG BASE EXCESS -2.1 mmol/L (-2.0-2.0); BG CARBOXYHEMOGLOBIN 0.8 % (0.5-1.5); BG DEOXYHEMOGLOBIN 1.5 % (0.0-5.0); BG FRACTION INSPIRED OXYGEN 36; BG HCO3 ACT 21.5 mmol/L (22.0-26.0); BG METHEMOGLOBIN 0.3 % (0.0-1.5); BG OXYGEN SATURATION 98.5 % (92.0-98.5); BG OXYHEMOGLOBIN 97.4 % (94.0-97.0); BG PCO2 33.4 mmHg (35.0-45.0); BG PH 7.426 (7.350-7.450); BG PO2 116.4 mmHg (75.0-100.0); BG SAMPLE SITE RIGHT RADIAL; BG TOTAL HEMOGLOBIN 14.1 g/dL (12.0-18.0); BG VENT MODE NASAL CANNULA
[2019-09-04] MEDS: GUAIFENESIN 600MG ER TABLET PO SCH ×2 (09:45→21:14)
[2019-09-04] MEDS: LORATADINE 10MG TABLET PO SCH (09:45)
[2019-09-04] MEDS: FLUTICASONE PROPIONATE 50MCG/SPRAY BOTTLE BOTHNSTRLS SCH ×2 (09:46→21:16)
[2019-09-04] MEDS: AMLODIPINE 10MG TABLET PO SCH (09:47)
[2019-09-04] MEDS: AZITHROMYCIN 500 MG TABLET PO SCH (09:47)
[2019-09-04] MEDS: FAMOTIDINE 20MG/2ML VIAL IV SCH ×2 (09:48→21:13)
[2019-09-04] MEDS: LEVOTHYROXINE SODIUM 75MCG TABLET PO SCH (09:54)
[2019-09-04 11:03] LABS: PLATELET ESTIMATE NORMAL
[2019-09-04] MEDS: ENOXAPARIN 40MG/0.4ML SYR SUBCUT SCH (16:00)
[2019-09-04] MEDS: MONTELUKAST SODIUM 10MG TABLET PO SCH (16:42)
[2019-09-04] MEDS ORDERED: ATORVASTATIN CALCIUM 40MG TABLET PO SCH (21:00)
[2019-09-05] VITALS (14 sets, daily range): BP systolic 94–144; BP diastolic 33–84
[2019-09-05] MEDS: IPRATROPIUM/ALBUTEROL 0.5-3(2.5)MG/3ML NEB NEB SCH ×3 (03:09→14:30)
[2019-09-05] MEDS: METHYLPREDNISOLONE SOD SUCC 125 MG/2 ML VIAL IV SCH ×2 (03:14→11:02)
[2019-09-05 05:43] LABS: CHLORIDE 108 mEq/L (98-107)
[2019-09-05 05:44] LABS: HEMATOCRIT 40.8 % (36.0-48.0); HEMOGLOBIN 13.4 g/dL (12.0-16.0); MEAN CORPUSCULAR HEMOGLOBIN 30.4 pg (28.0-32.0); MEAN CORPUSCULAR VOLUME 92.6 fL (81.0-99.0); PLATELET 236 x1000/uL (130-400); RED BLOOD CELL COUNT 4.41 mill/uL (4.2-5.4); RED CELL DISTRIBUTION WIDTH 13.2 % (11.6-14.6)
[2019-09-05] MEDS: LEVOTHYROXINE SODIUM 75MCG TABLET PO SCH (06:10)
[2019-09-05] MEDS: FLUTICASONE PROPIONATE 50MCG/SPRAY BOTTLE BOTHNSTRLS SCH (08:43)
[2019-09-05] MEDS: FAMOTIDINE 20MG/2ML VIAL IV SCH (08:44)
[2019-09-05] MEDS: LORATADINE 10MG TABLET PO SCH (08:44)
[2019-09-05] MEDS: AZITHROMYCIN 500 MG TABLET PO SCH (08:44)
[2019-09-05] MEDS: AMLODIPINE 10MG TABLET PO SCH (08:44)
[2019-09-05] MEDS: GUAIFENESIN 600MG ER TABLET PO SCH (08:44)
[2019-09-05] MEDS ORDERED: LEVOFLOXACIN 500MG PREMIX 100 ML IV SCH (09:00)
[2019-09-05] MEDS ORDERED: P20 PO (13:53)
[2019-09-05] MEDS ORDERED: AZIT500T3 MT (13:53)
[2019-09-06] MEDS ORDERED: PREDNISONE 20MG TABLET PO SCH (07:00)
== END 2019-09-05 16:40 | disposition home or self-care (01) | DRG 189 ==
LOC: ER 06:39 → MICUNO 07:55 → EDBEDREQ 08:00 → ENRESERV 13:59
PROVIDERS: ADMIT Hospitalist; ATTEND Hospitalist
PROC: 5A09357 Assistance with Respiratory Ventilation, Less than 24 Consecutive Hours, Continuous Positive Airway Pressure (ICD-10-PCS; principal; 2019-09-03)
PROC: 5A09357 Assistance with Respiratory Ventilation, Less than 24 Consecutive Hours, Continuous Positive Airway Pressure (ICD-10-PCS; 2019-09-04)
DX: J96.01 Acute respiratory failure with hypoxia (principal); J45.901 Unspecified asthma with (acute) exacerbation; R65.10 Systemic inflammatory response syndrome (SIRS) of non-infectious origin without acute organ dysfunction; E03.9 Hypothyroidism, unspecified; E78.5 Hyperlipidemia, unspecified; J06.9 Acute upper respiratory infection, unspecified; J20.9 Acute bronchitis, unspecified; Z96.653 Presence of artificial knee joint, bilateral; I11.9 Hypertensive heart disease without heart failure; E05.90 Thyrotoxicosis, unspecified without thyrotoxic crisis or storm; M19.90 Unspecified osteoarthritis, unspecified site; E78.00 Pure hypercholesterolemia, unspecified; Z79.899 Other long term (current) drug therapy
CPT/HCPCS: 36415; 36600; 71045; 80048; 80053; 80305; 81003; 82375; 82805; 83605; 83880; 84145; 84439; 84443; 84484; 85025; 85027; 87804; 93005; 93970; 94640; 94644; 94660; 99285; J1650; J1956; J2060; J2920; J2930; J3105; J3475; J3490; J7611; J7620

== ENCOUNTER → 2021-06-05 | Outpatient (CLI) | payer MEDICARE, MEDICAID ==
[~2021-06-05] MED LIST changes: +AZIT500T3 MT; +P20 PO; +SIMV-46; -SIMV40TA5
== END | disposition home or self-care (01) ==
LOC: RAD 11:37
DX: M19.071 Primary osteoarthritis, right ankle and foot (principal); M20.11 Hallux valgus (acquired), right foot; M79.671 Pain in right foot
CPT/HCPCS: 73630

== ENCOUNTER 2021-10-31 03:54 | Emergency (ER) | payer MEDICARE, MEDICAID ==
[~2021-10-31] VITALS: Ht 167.6 cm; Wt 79.0 kg
[2021-10-31] MEDS ORDERED: IPRATROPIUM BROMIDE (0.02%) 0.5MG/2.5ML NEB HHN STA (04:28)
[2021-10-31] MEDS ORDERED: ONDANSETRON HCL 4MG/2ML INJ IV STA (04:28)
[2021-10-31] MEDS ORDERED: METHYLPREDNISOLONE SOD SUCC 125 MG/2 ML VIAL IV STA (04:28)
[2021-10-31] MEDS ORDERED: SODIUM CHLORIDE 0.9% 1,000 ML IV ONE (04:30)
[2021-10-31] MEDS ORDERED: MAGNESIUM 2 G PREMIX 50 ML IV ONE (04:30)
[2021-10-31] MEDS ORDERED: ALBUTEROL (0.5%) 2.5MG/0.5ML NEB HHN ONE (04:33)
[2021-10-31] MEDS ORDERED: IPRATROPIUM/ALBUTEROL 0.5-3(2.5)MG/3ML NEB ONE (04:34)
[2021-10-31] MEDS ORDERED: ALBUTEROL (0.083%) 2.5MG/3ML NEB ONE (04:41)
[2021-10-31] MEDS: ALBUTEROL (0.083%) 2.5MG/3ML NEB HHN SCH ×2 (04:43→05:44)
[2021-10-31 05:37] LABS: CHLORIDE 107 mEq/L (98-107)
[2021-10-31 05:47] LABS: BASOPHILS % 0.6 % (0.0-2.0); EOSINOPHILS % 2.9 % (0.0-5.0); HEMATOCRIT. 39.5 % (36.0-48.0); HEMOGLOBIN. 12.9 g/dL (12.0-16.0); LYMPHOCYTES % 51.7 % (20.0-50.0); MEAN CORPUSCULAR HEMOGLOBIN 29.6 pg (28.0-32.0); MEAN CORPUSCULAR VOLUME 90.4 fL (81.0-99.0); MEAN PLATELET VOLUME 9.3 fl (7.4-10.4); MONOCYTES % 9.2 % (2.0-8.0); NEUTROPHILS % 35.6 % (40.0-76.0); PLATELET 258 x1000/uL (130-400); RED BLOOD CELL COUNT 4.37 mill/uL (4.2-5.4); RED CELL DISTRIBUTION WIDTH 14.4 % (11.6-14.6)
[2021-10-31] MEDS ORDERED: P20 MT (06:19)
[2021-10-31 06:42] VITALS: BP 126/48
[2021-10-31] MEDS ORDERED: CLONIDINE 0.1MG TABLET PO PRN (07:00)
[2021-10-31] MEDS ORDERED: KETOROLAC 15MG/ML VIAL IV PRN (07:00)
[2021-10-31] MEDS ORDERED: ENOXAPARIN 40MG/0.4ML SYR SUBCUT SCH (07:00)
[2021-10-31] MEDS ORDERED: ONDANSETRON HCL 4MG/2ML INJ IV PRN (07:00)
[2021-10-31] MEDS ORDERED: LEVOFLOXACIN 500MG PREMIX 100 ML IV SCH (07:00)
[2021-10-31] MEDS ORDERED: GUAIFENESIN 200MG/10ML SUGAR FREE UDC PO PRN (07:00)
[2021-10-31] MEDS ORDERED: ZOLPIDEM TARTRATE 5MG TABLET PO PRN (07:00)
[2021-10-31] MEDS ORDERED: IPRATROPIUM/ALBUTEROL 0.5-3(2.5)MG/3ML NEB NEB PRN (07:00)
[2021-10-31] MEDS ORDERED: NITROGLYCERIN 0.4MG TABLET SL SL PRN (07:00)
[2021-10-31] MEDS ORDERED: DOCUSATE SODIUM 100MG CAPSULE PO PRN (07:00)
[2021-10-31] MEDS ORDERED: IPRATROPIUM/ALBUTEROL 0.5-3(2.5)MG/3ML NEB HHN SCH (07:00)
[2021-10-31] MEDS ORDERED: ACETAMINOPHEN 325MG TABLET PO PRN ×2 (07:00)
[2021-10-31] MEDS ORDERED: MAGNESIUM/ALUMINUM HYDROXIDE/SIMETHICONE 30ML UDC PO PRN (07:00)
[2021-10-31 07:42] LABS: ETHANOL BLOOD < 10 mg/dL
[2021-10-31 07:45] LABS: LDL CHOLESTEROL 68 mg/dL (5-100)
[2021-10-31 07:47] LABS: TOTAL IRON BINDING CAPACITY 421 ug/dL (250-450)
[2021-10-31 07:48] LABS: HDL CHOLESTEROL 79 mg/dL (40-59)
[2021-10-31] MEDS ORDERED: ASCORBIC ACID 500 MG TABLET PO SCH (09:00)
[2021-10-31] MEDS ORDERED: CHOLECALCIFEROL (D3) 1000 UNIT TABLET PO SCH (09:00)
[2021-10-31] MEDS ORDERED: ZINC SULFATE 220 MG ( 50 ) CAPSULE PO SCH (09:00)
[2021-10-31] MEDS ORDERED: FAMOTIDINE 20MG TABLET PO SCH (09:00)
[2021-10-31] MEDS ORDERED: ASPIRIN 325MG EC TABLET PO SCH (09:00)
[2021-10-31] MEDS ORDERED: METHYLPREDNISOLONE SOD SUCC 125 MG/2 ML VIAL IV SCH (14:00)
[2021-10-31 18:13] LABS: FOLIC ACID (FOLATE) SERUM 8.7 ng/mL (>5.38)
== END 2021-10-31 07:17 | disposition left against medical advice (07) ==
LOC: ER 03:54 → SUPCPDRO 06:59 → ENRESERV 07:12 → ER 07:17 → CANBEDREQ 17:05
DX: J44.1 Chronic obstructive pulmonary disease with (acute) exacerbation (principal); J96.00 Acute respiratory failure, unspecified whether with hypoxia or hypercapnia; I11.0 Hypertensive heart disease with heart failure; I50.9 Heart failure, unspecified; E83.51 Hypocalcemia; E03.9 Hypothyroidism, unspecified; E78.00 Pure hypercholesterolemia, unspecified; M19.90 Unspecified osteoarthritis, unspecified site
CPT/HCPCS: 36415; 71045; 80053; 80061; 80320; 82607; 82746; 83036; 83540; 83550; 83605; 83880; 84145; 84443; 84484; 85025; 85379; 87040; 93005; 94640; 96365; 96375; 99291; J2405; J2930; J3475; J7030; G0480

== ENCOUNTER 2021-12-29 23:06 | Emergency (ER) | payer MEDICARE, MEDICAID ==
[~2021-12-29] VITALS: Ht 157.5 cm; Wt 81.6 kg
[~2021-12-29 23:06] MED LIST changes: +P20 MT
[2021-12-30 00:03] VITALS: BP 172/69
== END 2021-12-30 00:45 | disposition left against medical advice (07) ==
LOC: ER 23:40
DX: Z53.21 Procedure and treatment not carried out due to patient leaving prior to being seen by health care provider (principal)

== ENCOUNTER 2022-01-13 21:00 | Emergency (ER) | payer MEDICARE, MEDICAID ==
[~2022-01-13] VITALS: Ht 157.5 cm; Wt 89.0 kg
[2022-01-13 21:35] VITALS: BP 175/64
[2022-01-13] MEDS ORDERED: DEXAMETHASONE 4MG/ML 1ML VIAL IM ONE (21:45)
[2022-01-13] MEDS ORDERED: MED4 MT (22:01)
[2022-01-13] MEDS ORDERED: BECL10.62 INH (22:01)
== END 2022-01-13 22:24 | disposition home or self-care (01) ==
LOC: ER 21:00
DX: J45.901 Unspecified asthma with (acute) exacerbation (principal); I10 Essential (primary) hypertension; E78.00 Pure hypercholesterolemia, unspecified; Z96.653 Presence of artificial knee joint, bilateral
CPT/HCPCS: 93005; 96372; 99283; J1100

== ENCOUNTER 2022-06-20 21:19 | Emergency (ER) | payer MEDICARE, MEDICAID ==
[~2022-06-20] VITALS: Ht 157.5 cm; Wt 82.4 kg
[~2022-06-20 21:19] MED LIST changes: +BECL10.62 INH; +MED4 MT
[2022-06-20 21:46] VITALS: BP 189/86
[2022-06-20] MEDS ORDERED: MED4 MT (23:24)
[2022-06-20] MEDS ORDERED: ALBU2.5V13 NEB (23:24)
[2022-06-20] MEDS ORDERED: DEXAMETHASONE 4MG/ML 1ML VIAL IM ONE (23:30)
== END 2022-06-20 23:43 | disposition home or self-care (01) ==
LOC: ER 21:19
DX: J45.909 Unspecified asthma, uncomplicated (principal); R06.02 Shortness of breath; E78.00 Pure hypercholesterolemia, unspecified; I10 Essential (primary) hypertension; E03.9 Hypothyroidism, unspecified; Z79.899 Other long term (current) drug therapy
CPT/HCPCS: 96372; 99283; J1100

== ENCOUNTER 2022-09-17 06:07 | Inpatient (IN) | payer MEDICARE, MEDICAID ==
[~2022-09-17] VITALS: Ht 157.5 cm; Wt 84.4 kg
[~2022-09-17 06:07] MED LIST changes: +ALBU2.5V13 NEB
[2022-09-17] MEDS ORDERED: MAGNESIUM 2 G PREMIX 50 ML IV STA (06:12)
[2022-09-17] MEDS ORDERED: IPRATROPIUM BROMIDE (0.02%) 0.5MG/2.5ML NEB HHN STA (06:12)
[2022-09-17] MEDS ORDERED: METHYLPREDNISOLONE SOD SUCC 125 MG/2 ML VIAL IV STA (06:12)
[2022-09-17] MEDS ORDERED: ALBUTEROL (0.083%) 2.5MG/3ML NEB HHN STA (06:12)
[2022-09-17 06:54] LABS: BASOPHILS % 0.4 % (0.0-2.0); EOSINOPHILS % 0.9 % (0.0-5.0); HEMATOCRIT. 40.6 % (36.0-48.0); HEMOGLOBIN. 13.7 g/dL (12.0-16.0); LYMPHOCYTES % 30.8 % (20.0-50.0); MEAN CORPUSCULAR HEMOGLOBIN 30.7 pg (28.0-32.0); MEAN CORPUSCULAR VOLUME 91.2 fL (81.0-99.0); MEAN PLATELET VOLUME 8.6 fl (7.4-10.4); MONOCYTES % 11.7 % (2.0-8.0); NEUTROPHILS % 56.2 % (40.0-76.0); PLATELET 240 x1000/uL (130-400); RED BLOOD CELL COUNT 4.45 mill/uL (4.2-5.4); RED CELL DISTRIBUTION WIDTH 12.9 % (11.6-14.6)
[2022-09-17 07:00] LABS: CHLORIDE 104 mEq/L (98-107)
[2022-09-17] MEDS ORDERED: ACETAMINOPHEN 325MG TABLET PO PRN ×2 (09:15)
[2022-09-17] MEDS ORDERED: DOCUSATE SODIUM 100MG CAPSULE PO PRN (09:15)
[2022-09-17] MEDS ORDERED: GUAIFENESIN 200MG/10ML SUGAR FREE UDC PO PRN ×2 (09:15→09:30)
[2022-09-17] MEDS ORDERED: IPRATROPIUM/ALBUTEROL 0.5-3(2.5)MG/3ML NEB HHN PRN (09:15)
[2022-09-17] MEDS ORDERED: ONDANSETRON HCL 4MG/2ML INJ IV PRN ×2 (09:15→09:30)
[2022-09-17] MEDS ORDERED: MAGNESIUM/ALUMINUM HYDROXIDE/SIMETHICONE 30ML UDC PO PRN ×2 (09:15→09:30)
[2022-09-17] MEDS ORDERED: CLONIDINE 0.1MG TABLET PO PRN ×2 (09:15→09:30)
[2022-09-17 09:23] LABS: BG BASE EXCESS -2.5 mmol/L (-2.0-2.0); BG CARBOXYHEMOGLOBIN 0.9 % (0.5-1.5); BG DEOXYHEMOGLOBIN 0.3 % (0.0-5.0); BG FRACTION INSPIRED OXYGEN 100; BG HCO3 ACT 21.9 mmol/L (22.0-26.0); BG METHEMOGLOBIN 0.2 % (0.0-1.5); BG OXYGEN SATURATION 99.7 % (92.0-98.5); BG OXYHEMOGLOBIN 98.6 % (94.0-97.0); BG PH 7.391 (7.350-7.450); BG SAMPLE SITE RIGHT BRACHIAL; BG TOTAL HEMOGLOBIN 13.9 g/dL (12.0-18.0); BG TOTAL RESPIRATORY RATE 20 b/min; BG VENT MODE MASK - BIPAP
[2022-09-17] MEDS ORDERED: ZOLPIDEM TARTRATE 5MG TABLET PO PRN (09:30)
[2022-09-17] MEDS ORDERED: NITROGLYCERIN 0.4MG TABLET SL SL PRN (09:30)
[2022-09-17] MEDS ORDERED: KETOROLAC 15MG/ML VIAL IV PRN (09:30)
[2022-09-17] MEDS: ENOXAPARIN 40MG/0.4ML SYR SUBCUT SCH (10:00)
[2022-09-17 10:31] LABS: D-DIMER 0.44 mg/L FEU (<0.50); PROTHROMBIN TIME 10.3 sec (9.6-11.0)
[2022-09-17] MEDS: LISINOPRIL 20MG TABLET PO SCH ×2 (11:00→23:00)
[2022-09-17] MEDS: ASPIRIN 325MG EC TABLET PO SCH (11:00)
[2022-09-17] MEDS: AMLODIPINE 10MG TABLET PO SCH (11:00)
[2022-09-17] MEDS: FAMOTIDINE 20MG TABLET PO SCH ×2 (11:00→23:00)
[2022-09-17] MEDS: LEVOTHYROXINE SODIUM 88MCG TABLET PO SCH (11:00)
[2022-09-17] MEDS: METHYLPREDNISOLONE SOD SUCC 40 MG/ML VIAL IV SCH ×2 (14:00→22:59)
[2022-09-17] MEDS: IPRATROPIUM/ALBUTEROL 0.5-3(2.5)MG/3ML NEB HHN SCH ×2 (15:15→20:19)
[2022-09-17] MEDS ORDERED: FAMOTIDINE 20MG TABLET PO SCH (21:00)
[2022-09-17 22:00] VITALS: BP 143/70
[2022-09-17 22:19] VITALS: BP 143/70
[2022-09-17] MEDS: ATORVASTATIN CALCIUM 40MG TABLET PO SCH (23:00)
[2022-09-18] VITALS (12 sets, daily range): BP systolic 90–154; BP diastolic 32–72
[2022-09-18] MEDS ORDERED: IPRATROPIUM BROMIDE (0.02%) 0.5MG/2.5ML NEB ONE (02:01)
[2022-09-18] MEDS ORDERED: ALBUTEROL (0.083%) 2.5MG/3ML NEB ONE (02:01)
[2022-09-18] MEDS: METHYLPREDNISOLONE SOD SUCC 40 MG/ML VIAL IV SCH (05:26)
[2022-09-18 06:27] LABS: CHLORIDE 105 mEq/L (98-107)
[2022-09-18 06:46] LABS: T4 FREE 1.18 ng/dL (0.76-1.46)
[2022-09-18] MEDS: ENOXAPARIN 40MG/0.4ML SYR SUBCUT SCH (08:27)
[2022-09-18] MEDS: FAMOTIDINE 20MG TABLET PO SCH ×2 (08:34→20:36)
[2022-09-18] MEDS: AMLODIPINE 10MG TABLET PO SCH (08:34)
[2022-09-18] MEDS: LEVOTHYROXINE SODIUM 88MCG TABLET PO SCH (08:34)
[2022-09-18] MEDS: LISINOPRIL 20MG TABLET PO SCH ×2 (08:34→20:36)
[2022-09-18] MEDS ORDERED: IPRATROPIUM/ALBUTEROL 0.5-3(2.5)MG/3ML NEB HHN PRN ×2 (09:30)
[2022-09-18] MEDS: FUROSEMIDE 40MG/4ML VIAL IVP SCH ×2 (10:11→17:28)
[2022-09-18 10:12] LABS: HEMOGLOBIN. 14.8 g/dL (12.0-16.0); MEAN CORPUSCULAR HEMOGLOBIN 30.7 pg (28.0-32.0); MEAN CORPUSCULAR VOLUME 91.2 fL (81.0-99.0); MEAN PLATELET VOLUME 8.8 fl (7.4-10.4); PLATELET 279 x1000/uL (130-400); RED BLOOD CELL COUNT 4.82 mill/uL (4.2-5.4); RED CELL DISTRIBUTION WIDTH 13.2 % (11.6-14.6)
[2022-09-18] MEDS: SPIRONOLACTONE 25MG TABLET PO SCH (11:05)
[2022-09-18] MEDS ORDERED: IPRATROPIUM BROMIDE (0.02%) 0.5MG/2.5ML NEB HHN PRN ×2 (12:45→15:00)
[2022-09-18] MEDS ORDERED: ALBUTEROL (0.083%) 2.5MG/3ML NEB HHN PRN (12:45)
[2022-09-18] MEDS: METHYLPREDNISOLONE SOD SUCC 125 MG/2 ML VIAL IV SCH ×2 (13:07→20:36)
[2022-09-18] MEDS: IPRATROPIUM BROMIDE (0.02%) 0.5MG/2.5ML NEB HHN SCH ×2 (15:00→20:25)
[2022-09-18] MEDS: ALBUTEROL (0.083%) 2.5MG/3ML NEB HHN SCH ×2 (15:00→20:25)
[2022-09-18 16:17] LABS: PLATELET ESTIMATE NORMAL
[2022-09-18] MEDS ORDERED: MONTELUKAST SODIUM 10MG TABLET PO SCH (17:00)
[2022-09-18] MEDS: ATORVASTATIN CALCIUM 40MG TABLET PO SCH (20:36)
[2022-09-19] VITALS (7 sets, daily range): BP systolic 135–154; BP diastolic 48–86
[2022-09-19] MEDS: ALBUTEROL (0.083%) 2.5MG/3ML NEB HHN SCH ×2 (03:00→08:01)
[2022-09-19] MEDS: IPRATROPIUM BROMIDE (0.02%) 0.5MG/2.5ML NEB HHN SCH ×2 (03:00→08:01)
[2022-09-19] MEDS: METHYLPREDNISOLONE SOD SUCC 125 MG/2 ML VIAL IV SCH (05:20)
[2022-09-19] MEDS: FUROSEMIDE 40MG/4ML VIAL IVP SCH (05:20)
[2022-09-19] MEDS: ASPIRIN 325MG EC TABLET PO SCH (08:17)
[2022-09-19] MEDS: AMLODIPINE 10MG TABLET PO SCH (08:19)
[2022-09-19] MEDS: FAMOTIDINE 20MG TABLET PO SCH (08:19)
[2022-09-19] MEDS: LISINOPRIL 20MG TABLET PO SCH (08:20)
[2022-09-19] MEDS: SPIRONOLACTONE 25MG TABLET PO SCH (08:20)
[2022-09-19] MEDS: LEVOTHYROXINE SODIUM 88MCG TABLET PO SCH (08:26)
[2022-09-19] MEDS: ENOXAPARIN 40MG/0.4ML SYR SUBCUT SCH ×2 (08:27→08:37)
[2022-09-19] MEDS ORDERED: AMLO10TA80 PO (11:04)
[2022-09-19] MEDS ORDERED: FURO-151 MT (11:04)
[2022-09-19] MEDS ORDERED: ASPI-1406 MT (11:04)
[2022-09-19] MEDS ORDERED: ALBU6.7H3 INH (11:04)
[2022-09-19] MEDS ORDERED: LOSA100T3 MT (11:04)
[2022-09-19] MEDS ORDERED: TIOT18CA3 INH (11:04)
[2022-09-19] MEDS ORDERED: LEVO88TA2 MT (11:04)
[2022-09-19] MEDS ORDERED: SPIR25TA MT (11:04)
[2022-09-19] MEDS ORDERED: LIP40 PO (11:04)
[2022-09-19] MEDS ORDERED: P20 MT (11:04)
== END 2022-09-19 15:46 | disposition home or self-care (01) | DRG 189 ==
LOC: ER 06:07 → 5EST 08:12
PROVIDERS: ADMIT Internal Medicine; ATTEND Internal Medicine
PROC: 5A09357 Assistance with Respiratory Ventilation, Less than 24 Consecutive Hours, Continuous Positive Airway Pressure (ICD-10-PCS; principal; 2022-09-17)
DX: J96.00 Acute respiratory failure, unspecified whether with hypoxia or hypercapnia (principal); J45.902 Unspecified asthma with status asthmaticus; I50.40 Unspecified combined systolic (congestive) and diastolic (congestive) heart failure; J45.901 Unspecified asthma with (acute) exacerbation; I16.0 Hypertensive urgency; E87.6 Hypokalemia; I11.0 Hypertensive heart disease with heart failure; E78.00 Pure hypercholesterolemia, unspecified; E78.5 Hyperlipidemia, unspecified; E03.9 Hypothyroidism, unspecified; M19.90 Unspecified osteoarthritis, unspecified site; D72.829 Elevated white blood cell count, unspecified; T38.0X5A Adverse effect of glucocorticoids and synthetic analogues, initial encounter; Z79.899 Other long term (current) drug therapy; Z96.653 Presence of artificial knee joint, bilateral; Z90.710 Acquired absence of both cervix and uterus; Y92.89 Other specified places as the place of occurrence of the external cause; I50.9 Heart failure, unspecified
CPT/HCPCS: 36415; 36600; 71045; 80053; 80061; 82375; 82805; 83036; 83880; 84439; 84443; 84484; 85025; 85379; 93005; 93306; 93970; 94640; 94644; 94660; 99291; J1650; J1940; J2920; J2930; J3475

== ENCOUNTER 2022-11-08 16:05 | Emergency (ER) | payer MEDICARE, MEDICAID ==
[~2022-11-08] VITALS: Ht 157.5 cm; Wt 77.0 kg
[~2022-11-08 16:05] MED LIST changes: -ALBU17AE26; +ALBU6.7H3 INH; +AMLO10TA80 PO; +ASPI-1406 MT; -AZIT500T3 MT; -BECL10.62 INH; -BECL8.7A5; +FURO-151 MT; -LEVO75TA; +LEVO88TA2 MT; +LIP40 PO; +LOSA100T3 MT; -MED4 MT; -P20 PO; -SIMV-46; +SPIR25TA MT; -THEO200T17; -TIOT18CA3 IH; +TIOT18CA3 INH
[2022-11-08 16:11] VITALS: BP 153/72
[2022-11-08] MEDS ORDERED: PREDNISONE 20MG TABLET PO ONE (17:15)
[2022-11-08] MEDS ORDERED: IPRATROPIUM/ALBUTEROL 0.5-3(2.5)MG/3ML NEB HHN ONE (17:15)
[2022-11-08 17:38] LABS: HEMATOCRIT. 36.2 % (36.0-48.0); HEMOGLOBIN. 12.3 g/dL (12.0-16.0); MEAN CORPUSCULAR HEMOGLOBIN 31.1 pg (28.0-32.0); MEAN CORPUSCULAR VOLUME 91.4 fL (81.0-99.0); MEAN PLATELET VOLUME 8.9 fl (7.4-10.4); PLATELET 228 x1000/uL (130-400); RED BLOOD CELL COUNT 3.96 mill/uL (4.2-5.4); RED CELL DISTRIBUTION WIDTH 13.3 % (11.6-14.6)
[2022-11-08 17:40] LABS: CHLORIDE 106 mEq/L (98-107)
[2022-11-08 19:45] LABS: PLATELET ESTIMATE NORMAL
[2022-11-08] MEDS ORDERED: P50 MT (20:19)
== END 2022-11-08 21:38 | disposition home or self-care (01) ==
LOC: ER 16:05
DX: J45.901 Unspecified asthma with (acute) exacerbation (principal); I10 Essential (primary) hypertension; E78.00 Pure hypercholesterolemia, unspecified; E03.9 Hypothyroidism, unspecified; M19.90 Unspecified osteoarthritis, unspecified site; Z90.710 Acquired absence of both cervix and uterus; Z96.659 Presence of unspecified artificial knee joint
CPT/HCPCS: 36415; 71045; 80053; 83880; 84484; 85025; 93005; 99285; J7512

== ENCOUNTER 2022-12-07 22:21 | Emergency (ER) | payer MEDICARE, MEDICAID ==
[~2022-12-07] VITALS: Ht 157.5 cm; Wt 82.0 kg
[~2022-12-07 22:21] MED LIST changes: -LOSA100T3 MT; +LOSA100T4 MT; +P50 MT
[2022-12-08] MEDS ORDERED: IPRATROPIUM/ALBUTEROL 0.5-3(2.5)MG/3ML NEB HHN ONE (01:15)
[2022-12-08] MEDS ORDERED: METHYLPREDNISOLONE SOD SUCC 125 MG/2 ML VIAL IV ONE (01:15)
[2022-12-08] MEDS ORDERED: MAGNESIUM 2 G PREMIX 50 ML IV ONE (01:15)
[2022-12-08 01:26] LABS: EOSINOPHILS % 5.6 % (0.0-5.0); HEMATOCRIT. 33.9 % (36.0-48.0); HEMOGLOBIN. 11.2 g/dL (12.0-16.0); LYMPHOCYTES % 41.8 % (20.0-50.0); MEAN CORPUSCULAR HEMOGLOBIN 30.6 pg (28.0-32.0); MEAN CORPUSCULAR VOLUME 92.6 fL (81.0-99.0); NEUTROPHILS % 40.6 % (40.0-76.0); PLATELET 295 x1000/uL (130-400); RED BLOOD CELL COUNT 3.66 mill/uL (4.2-5.4); RED CELL DISTRIBUTION WIDTH 13.2 % (11.6-14.6)
[2022-12-08 01:31] LABS: CHLORIDE 105 mEq/L (98-107)
[2022-12-08 04:30] VITALS: BP 163/72
[2022-12-08] MEDS ORDERED: ALBU18HF2 IH (05:20)
[2022-12-08] MEDS ORDERED: P20 PO (05:20)
== END 2022-12-08 07:10 | disposition home or self-care (01) ==
LOC: ER 22:21
DX: J45.901 Unspecified asthma with (acute) exacerbation (principal); E78.00 Pure hypercholesterolemia, unspecified; I10 Essential (primary) hypertension; J45.909 Unspecified asthma, uncomplicated; Z79.899 Other long term (current) drug therapy
CPT/HCPCS: 36415; 80053; 83735; 85025; 94640; 96365; 96366; 96375; 99284; J2930; J3475

== ENCOUNTER 2025-08-07 18:41 | Emergency (ER) | payer MEDICARE, MEDICAID ==
[~2025-08-07] VITALS: Ht 165.1 cm; Wt 86.0 kg
[~2025-08-07 18:41] MED LIST changes: -ALBU6.7H3 INH; +AZIT500T8 MT; +BUDE6.9H INH; +HYDR-4009 MT; +HYDR50TA40 MT; -LEVO88TA2 MT; +LOSA-415 MT; -LOSA100T4 MT; +METH4TAB95 MT; -P20 MT; -P50 MT; +PROT20 MT
[2025-08-07 18:47] VITALS: O2SAT 99
[2025-08-07] MEDS ORDERED: IPRATROPIUM BROMIDE (0.02%) 0.5MG/2.5ML NEB HHN ONE (19:15)
[2025-08-07] MEDS ORDERED: ALBUTEROL (0.083%) 2.5MG/3ML NEB HHN SCH (19:15)
[2025-08-07] MEDS: PREDNISONE 20MG TABLET PO ONE (19:15)
[2025-08-07] MEDS ORDERED: IPRATROPIUM BROMIDE (0.02%) 0.5MG/2.5ML NEB HHN SCH (19:15)
[2025-08-07] MEDS: KETOROLAC 30MG/ML VIAL IM ONE (19:30)
[2025-08-07 19:36] LABS: BASOPHILS % 0.9 % (0.0-2.0); EOSINOPHILS % 1.2 % (0.0-5.0); HEMATOCRIT. 37.1 % (36.0-48.0); HEMOGLOBIN. 12.0 g/dL (12.0-16.0); LYMPHOCYTES % 15.8 % (20.0-50.0); MEAN PLATELET VOLUME 8.8 fl (7.4-10.4); MONOCYTES % 5.3 % (2.0-8.0); NEUTROPHILS % 76.8 % (40.0-76.0); PLATELET 230 x1000/uL (130-400); RED BLOOD CELL COUNT 3.95 mill/uL (4.2-5.4); RED CELL DISTRIBUTION WIDTH 13.2 % (11.6-14.6)
[2025-08-07 19:48] LABS: INR 0.9
[2025-08-07 19:55] LABS: CREATININE 0.8 mg/dL (0.6-1.0); UREA NITROGEN BLOOD 11 mg/dL (9-23)
[2025-08-07 19:57] LABS: TROPONIN I HIGH SENSITIVITY 10 ng/L (3.0-34)
[2025-08-07] MEDS ORDERED: IPRATROPIUM BROMIDE (0.02%) 0.5MG/2.5ML NEB ONE (21:30)
[2025-08-07] MEDS ORDERED: ALBUTEROL (0.083%) 2.5MG/3ML NEB ONE (21:30)
[2025-08-07] MEDS: KETOROLAC 30MG/ML VIAL IM SCH (21:32)
[2025-08-07] MEDS: PREDNISONE 20MG TABLET PO SCH (21:33)
[2025-08-07] MEDS ORDERED: P50 MT (21:40)
[2025-08-07 21:43] VITALS: BP 161/58; PULSE 60; RESP 18; TEMP 36.9; O2SAT 99
[2025-08-07 22:47] LABS: INFLUENZA TYPE A Presumptive Negative (Pres. Neg.)
[2025-08-07 22:48] LABS: INFLUENZA TYPE B Presumptive Negative (Pres. Neg.)
[2025-08-07 22:49] LABS: RESPIRATORY SYNCYTIAL VIRUS Not Detected (Not Detectd)
== END 2025-08-07 21:53 | disposition home or self-care (01) ==
LOC: ER 18:41 → CMPBEDREQ 08-08 10:51
DX: J45.901 Unspecified asthma with (acute) exacerbation (principal); Z79.51 Long term (current) use of inhaled steroids; Z79.82 Long term (current) use of aspirin; Z79.899 Other long term (current) drug therapy; Z20.822 Contact with and (suspected) exposure to COVID-19
CPT/HCPCS: 99285; 71045; 87426; 80048; 83880; 85025; 85610; 85730; 87420; 84484; 87804 ×2; 36415; 93005; 96372; J1885; J7512